=== PATIENT | female | born 1985 | race Caucasian/White ===

== ENCOUNTER → 2018-02-01 | Outpatient (CLI) | payer BC ==
--- NOTE | 2018-02-04 08:57 | MM ---
Reason for exam: clinical finding. History: Family history of breast cancer in mother at age 57. Retro-pectoral implants in both breasts, 2014. Taking hormonal contraceptives beginning at age 15. Physical Findings: Nurse Summary: 0.5cm nodule in the right breast at 6 o'clock (nurse dennis). MG Diag Mamm Implants [place] w CAD Bilateral CC, MLO, and ID view(s) were taken. The breast tissue is extremely dense which could obscure a lesion on mammography. Benign calcifications. There is no discrete abnormality including area of concern. Bilateral implants are intact. These results were verbally communicated with the patient and result sheet given to the patient on 02/01/18. ASSESSMENT: Incomplete: need additional imaging evaluation, BI-RAD 0 RECOMMENDATION: Ultrasound of the right breast.
--- NOTE | 2018-02-04 08:59 | USB ---
Reason for exam: additional evaluation requested from abnormal screening. History: Family history of breast cancer in mother at age 57. Retro-pectoral implants in both breasts, 2014. Taking hormonal contraceptives beginning at age 15. US Breast Limited RT Right breast ultrasound demonstrates a 1.0 x 0.5 x 1.2cm oval, solid lesion at 8 o'clock. Probable glandular tissue. Follow up recommended. These results were verbally communicated with the patient and result sheet given to the patient on 02/01/18. ASSESSMENT: Probably benign, BI-RAD 3 RECOMMENDATION: Ultrasound of the right breast in 6 months. Manage patient on a clinical basis.
== END | disposition home or self-care (01) ==
LOC: RADMAMWWP 13:25 → MERGE 13:40
PROVIDERS: ATTEND Nurse Practitioner
DX: N63.0 Unspecified lump in unspecified breast (principal); R92.8 Other abnormal and inconclusive findings on diagnostic imaging of breast
CPT/HCPCS: 77066

== ENCOUNTER → 2018-11-29 | Outpatient (CLI) | payer BC ==
--- NOTE | 2018-11-29 12:22 | USB ---
Reason for exam: clinical finding. History: Family history of breast cancer in mother at age 57. Retro-pectoral implants in both breasts, 2014. Taking hormonal contraceptives beginning at age 15. Physical Findings: Nurse Summary: Patient states area at 8 o'clock tender (nurse kp). US Breast RT Right complete breast ultrasound includes all four quadrants, the retroareolar region and axilla. Finding demonstrates a 1.5 x 0.8 x 0.5cm solid lesion at 8 o'clock enlarged, ill defined margins, biopsy recommended and a 0.8 x 0.6 x 0.3cm oval, cystic lesion at 9 o'clock. These results were verbally communicated with the patient and result sheet given to the patient on 11/29/18. ASSESSMENT: Suspicious, BI-RAD 4 RECOMMENDATION: Ultrasound core biopsy of the right breast. Called Dr. Lew with mammographic findings and has scheduled an appointment for the patient for 01/01/19 at 1:[address] Pal. Biopsy scheduled for 12/19/18 at 12:20. PRELIMINARY REPORT CALLED AND FAXED TO DR. PAL ON 11/29/18.
== END | disposition home or self-care (01) ==
LOC: RADUSWWP 09:30
PROVIDERS: ATTEND Family Medicine
DX: R92.8 Other abnormal and inconclusive findings on diagnostic imaging of breast (principal); N63.10 Unspecified lump in the right breast, unspecified quadrant

== ENCOUNTER → 2019-07-25 | Outpatient (CLI) | payer BC ==
--- NOTE | 2019-07-25 11:45 | MM ---
Reason for exam: follow-up at short interval from prior study. Last mammogram was performed 1 year and 6 months ago. History: Family history of breast cancer in mother at age 57. Benign US biopsy breast VAD RT of the right breast, December 19, 2018. Retro-pectoral implants in both breasts, 2013. Taking hormonal contraceptives beginning at age 15. Physical Findings: Nurse Summary: 0.5cm nodule in the right breast at 6 o'clock, questionable clip (nurse júnior). MG Diag Mamm Implant RT w CAD CC, MLO, and ID view(s) were taken of the right breast. Prior study comparison: February 01, 2018, bilateral MG diag mamm implants [place] w CAD. The breast tissue is extremely dense which could obscure a lesion on mammography. Finding: There are typically benign round, linear calcifications in the right breast. There is no discrete abnormality. Right subglandular implant. These results were verbally communicated with the patient and result sheet given to the patient on 07/25/19. ASSESSMENT: Benign, BI-RAD 2 RECOMMENDATION: Routine screening mammogram of both breasts at age 39.
--- NOTE | 2019-07-25 11:47 | USB ---
Reason for exam: follow-up at short interval from prior study. History: Family history of breast cancer in mother at age 57. Benign US biopsy breast VAD RT of the right breast, December 19, 2018. Retro-pectoral implants in both breasts, 2013. Taking hormonal contraceptives beginning at age 15. US Breast Limited RT Right limited breast ultrasound including focal area of concern, retroareolar and axilla demonstrates a 1.4 x 0.5 x 1.2cm solid, stable lesion at 8 o'clock, biopsied with benign results and a 0.7 x 0.4 x 0.5cm cystic, stable lesion at 9 o'clock. Right implant redemonstrated. These results were verbally communicated with the patient and result sheet given to the patient on 07/25/19. ASSESSMENT: Benign, BI-RAD 2 RECOMMENDATION: Routine screening mammogram of both breasts at age 39.
== END | disposition home or self-care (01) ==
LOC: RADMAMWWP 08:30
PROVIDERS: ATTEND Surgery
DX: R92.8 Other abnormal and inconclusive findings on diagnostic imaging of breast (principal)
CPT/HCPCS: 77065